=== PATIENT | male | born 1965 | race African-American/Black ===

== ENCOUNTER 2017-05-28 19:35 | Inpatient (IN) | payer BC ==
--- NOTE | ~2017-05-28 | HP ---
Unit #: [id number] #: [id number] Patient: KOURTNEY DUPREE [id number] [address] [place], [place] [address] [id number] I MR#: [id number] NAME: KOURTNEY DUPREE ROOM: 239 Age: 52 Sex: M Admission Date: 05/28/2017 : 1965 Attending Physician: Mona Howe M.D. Primary Care Physician: No Primary Care Physician HISTORY AND PHYSICAL CHIEF COMPLAINT Recurrent relapsing pancreatitis. HISTORY OF PRESENT ILLNESS This 52-year-old male with history of recurrent pancreatitis, alcohol abuse and hypertension, is to be admitted for pancreatitis. The patient was last admitted to this facility 05/10 through 05/13/2017 for acute alcohol induced pancreatitis. His medical record number at that time was [id number]. He was seen in consultation by Dr. Miguel Hilario. A gallbladder ultrasound showed fatty infiltration of the liver, borderline dilation of the common bile duct at [address] scan during that hospitalization subtle peripancreatic fat stranding suggestive of mild acute pancreatitis. A 3.1 cm low attenuation left adrenal mass unchanged from October 2016 but larger when compared to a more distant 2010 study. Mild fatty liver. The patient completed his inpatient alcohol detox at the time of his discharge a couple of weeks ago. He was doing quite well until three days ago and he states that he had one or two beers. He went back to his inpatient rehab center as he was continued that he would continue to drink alcohol. He was well until last night when he began to experience increasing epigastric pain which worsened today and is now radiating into his back associated with nausea and vomiting similar to his usual pancreatitis. He presents back to this emergency department where his amylase was 546 and lipase is 468. He was given a dose of Toradol, Zofran without relief along with a liter of saline. I have asked that a small dose of morphine also be administered. PAST MEDICAL HISTORY 1. History of alcohol abuse. 2. Recurrent alcohol induced pancreatitis. Patient estimates perhaps some four or five episodes over the past two years. 3. Essential hypertension. 4. GERD. 5. Eye surgery. SOCIAL HISTORY The patient was drinking one to two pints of hard liquor on a daily basis along with beer. He stopped drinking 04/13/2017, although he had a couple of beers three days ago. He smokes a pack per day of tobacco. He does not use illicit drugs. FAMILY HISTORY Hypertension, diabetes. Unit #: [id number] #: [id number] Patient: KOURTNEY DUPREE ALLERGIES No known drug allergies. MEDICATIONS 1. Neurontin 300 mg b.i.d. 2. Bentyl 10 mg t.i.d. p.r.n. 3. Maalox p.r.n. 4. Folic acid 1 mg daily. 5. Vitamin B daily. 6. Thiamine 200 mg daily. 7. Nexium 20 mg daily. 8. Norvasc 10 mg daily. 9. PRN Phenergan. 10. PRN Tylenol. 11. PRN Ativan. 12. Atarax 25 mg q.6 hours for anxiety. 13. Zofran 4 mg q.4 hours p.r.n. 14. Trazodone 50 mg q.h.s. REVIEW OF SYSTEMS Notable for nausea, vomiting, abdominal/back pain, pancreatitis, history of alcohol abuse and history of recurrent pancreatitis, hypertension, acid reflux, eye surgery. All other systems were reviewed and otherwise negative. PHYSICAL EXAMINATION GENERAL APPEARANCE: Uncomfortable, mildly obese, 52-year-old male. VITAL SIGNS: Temperature 98.3. Pulse 109. Respirations 18. Blood pressure 176/109. O2 saturation 100% on room air. HEENT: Eyes: PERRLA. Extraocular muscles are intact. Pharynx is benign. NECK: Supple without adenopathy or thyromegaly. CHEST: Clear. CARDIAC: Normal S1, S2 without S3, S4 or murmur. ABDOMEN: Bowel sounds are present. The patient has generalized abdominal tenderness which localizes to the mid abdomen without rebound or guarding. No hepatosplenomegaly or masses. EXTREMITIES: Without edema. NEUROLOGIC: The patient is awake, alert, oriented. Cranial nerves are intact. Equal strength throughout. DIAGNOSTIC STUDIES LABORATORY: Hematocrit 44.5, WBC count 15.8, normal platelet count. SMA-12: Sodium 132, potassium 3.4, chloride 94, protein 8.6, alkaline phosphatase 108. Amylase 546, lipase 468. ASSESSMENT 1. Recurrent relapsing pancreatitis related to alcohol abuse. However, the patient was clean and sober except for one to two beers three days ago. 2. Essential hypertension. PLAN 1. IV fluids. 2. Pain control. 3. DVT prophylaxis. 4. Check fasting triglyceride level again. 5. GI to see in consultation again. Unit #: [id number] #: [id number] Patient: KOURTNEY DUPREE Dictated by Mona Howe M.D. AML/bd TD: 05/29/2017 06:00 JOB #: [id number] HISTORY AND PHYSICAL Page 1 of 1 X Mona Howe MD X HISTORY AND PHYSICAL
--- NOTE | ~2017-05-28 | DS ---
Unit #: [id number] #: [id number] Patient: KOURTNEY DUPREE [id number] [address] [address] [id number] I MR#: [id number] NAME: KOURTNEY DUPREE ROOM: 239 Age: 52 Sex: M Admission Date: 05/28/2017 : 1965 Discharge Date: 05/31/2017 Attending Physician: Kishore Dietz M.D. Primary Care Physician: No Primary Care Physician DISCHARGE SUMMARY ADDENDUM Review of [facility] did show that the patient gets a chronic prescription for Lortab 10 from [facility]. [place] was voided, and he can continue to follow with Pain Management and continue on his regular home dose of Lortab. Dictated by... Kishore Dietz M.D. HERRERA/pita TD: 06/05/2017 09:06 JOB #: [id number] DISCHARGE SUMMARY Page 1 of 1 X Kishore Dietz MD X DISCHARGE SUMMARY
--- NOTE | ~2017-05-28 | CO ---
Unit #: [id number] #: [id number] Patient: KOURTENY DUPREE [id number] [facility] [address] [place], [place] [address] [id number] I MR#: [id number] NAME: KOURTNEY DUPREE ROOM: 239 Age: 52 Sex: M Admission Date: 05/28/2017 : 1965 Attending Physician: Kishore Dietz M.D. Primary Care Physician: No Primary Care Physician Consultation Date: 05/30/2017 CONSULTATION REPORT REASON FOR CONSULTATION Recurrent relapsing alcoholic pancreatitis. HISTORY Mr. Dupree is a 52-year-old -Polish gentleman who works at [employer]. The patient presented with a history of recurrent pancreatitis on a background of alcohol abuse and hypertension. In fact, he has been admitted three times at [facility] and apparently had a CAT scan there. He says he continued imbibing alcohol after periods of sobriety. His symptoms started with abdominal epigastric pain radiating to the back along with nausea and vomiting. The latter has stopped and patient is able to tolerate (1) . In fact, he just finished a plate of mac and cheese with cake still on the menu. He is feeling much better since after admission but still has some residual pain. PAST MEDICAL HISTORY Significant for: 1. Recurrent alcohol-induced chronic pancreatitis. 2. History of essential hypertension. 3. Gastroesophageal reflux. 4. Alcohol abuse. PAST SURGERIES The patient has no prior abdominal surgery. FAMILY HISTORY Hypertension and type 2 diabetes. MEDICATIONS His home medications include the followin. Neurontin. 2. Bentyl. 3. Maalox. 4. Folic acid. 5. Vitamin B. 6. Thiamine. 7. Nexium. 8. Norvasc. 9. He is on Atarax, Zofran and trazodone. 10. He also uses p.r.n. Ativan, Tylenol and Phenergan. ALLERGIES He has no known drug allergies. Unit #: [id number] #: [id number] Patient: KOURTNEY DUPREE SOCIAL HISTORY The patient drinks about a half to 3/4 pint of hard liquor daily. Stopped smoking recently. Does not use any intravenous drugs. REVIEW OF SYSTEMS A detailed review of organ systems does not reveal any recent weight loss. No history of fevers, chills or rigors. No history of headaches, seizures, chest pain or syncope. No history of cough, expectoration, hemoptysis. No history of dysuria, hematuria or pyuria. No history of focal seizures or extremity weakness. PHYSICAL EXAMINATION GENERAL APPEARANCE: He is alert and oriented and is sitting up in a chair. He is comfortable. VITAL SIGNS: Vital signs are stable with a temperature of 97.8, pulse is 69 per minute and regular, respiratory rate is 16, blood pressure is 136/81. He weighs 170 pounds or 169 pounds. I don't have any baseline weight to compare with. He has no pallor, icterus, lymphadenopathy or peripheral edema. CARDIOVASCULAR EXAMINATION: Normal heart sounds. No murmurs. LUNGS: Auscultation over the lungs reveals normal breath sounds. Good air entry. ABDOMEN: Soft. It is obese and minimally tender in the epigastric area. Liver and spleen are not palpable. Bowel sounds normal. DIAGNOSTIC STUDIES LABORATORY: Lab evaluation shows an elevated amylase and lipase with a declining trend and a triglyceride of 229. Peak amylase and lipase of 546 and 468 and they are now 432 and 110 respectively. The patient's BUN, creatinine and electrolytes are all normal. CBC is also normal except for mild leukocytosis which is resolving. CLINICAL IMPRESSION Patient certainly has chronic recurrent lasting alcoholic pancreatitis. The single most important element in his management and treatment is achievement of complete and total sobriety. This was impressed with Mr. Dupree and he concurred that he will try his best to stay sober. Can also discontinue morphine and start on oral hydrocodone and acetaminophen. Also, obtain copy of the CT scan done at [facility] recently. Thank you very much for asking me to see this pleasant gentleman. I appreciate the consult. Addendum - the patient's CT scan from [place] was reviewed and actually showed resolving changes of pancreatitis. Dictated by.Deion Rivera/margy TD: 06/01/2017 05:42 JOB #: [id number] Unit #: [id number] #: [id number] Patient: KOURTNEY DUPREE CC: Mona Howe M.D. CONSULTATION REPORT Page 1 of 1 X Miguel Hilario MD CONSULTATION REPORT
--- NOTE | ~2017-05-28 | DS ---
Unit #: [id number] #: [id number] Patient: KOURTNEY DUPREE [id number] [address] [address] [id number] I MR#: [id number] NAME: KOURTNEY DUPREE ROOM: 239 Age: 52 Sex: M Admission Date: 05/28/2017 : 1965 Discharge Date: Attending Physician: Kishore Dietz M.D. Primary Care Physician: No Primary Care Physician DISCHARGE SUMMARY PRIMARY DIAGNOSIS Acute alcoholic hepatitis. SECONDARY DIAGNOSES 1. Hypertension. 2. Leukocytosis, reactive, stress reaction secondary to pancreatitis. HOSPITAL COURSE The patient was placed in the hospital, received IV pain and nausea medications, was made NPO for over 24 hours and then re-introduced into a clear liquid diet and advanced. He did well and after evaluation which included urinalysis and blood cultures, no evidence of acute infection was found and patient's white blood cell count was trended down. The patient is discharged home with 10 tablets of hydrocodone and instructions to return to work on Sunday. He was seen in consultation her with Dr. Hilario. Dr. Hilario will see him back in clinic to follow up for long-term sequela of his recurrent episodes of acute pancreatitis and monitor for any issues with chronic pancreatic insufficiency that may develop. DISCHARGE DISPOSITION To home. DISCHARGE STATUS Stable. DISCHARGE ACTIVITY Ad mark. DISCHARGE DIET Full liquids and advance as tolerated. DISCHARGE MEDICATIONS 1. Lortab 7.5 one tablet p.o. q.6 hours p.r.n. pain for the next two days. 2. Amlodipine 10 mg p.o. daily. 3. Lisinopril 10 mg p.o. daily. 4. Neurontin 300 mg p.o. b.i.d. 5. Trazodone 50 mg p.o. nightly p.r.n. insomnia. 6. Loperamide 2 mg p.o. q.8 hours p.r.n. diarrhea. 7. Zofran 4 mg p.o. q.4 hours p.r.n. nausea. 8. Phenergan 25 mg p.o. q.4 hours p.r.n. nausea. 9. Bentyl 10 mg p.o. q.8 hours p.r.n. 10. Vistaril 25 mg p.o. q.6 hours p.r.n. 11. Ibuprofen 400 mg p.o. q.6 hours p.r.n. pain. Unit #: [id number] #: [id number] Patient: KOURTNEY DUPREE 12. Nexium 20 mg p.o. daily. 13. Folic acid 1 mg p.o. daily. 14. Thiamine 200 mg p.o. daily. 15. Vitamin B complex one tablet p.o. daily. The only new prescriptions given at discharge were for the 10 tablets of Lortab and for 30-day supply of lisinopril with one refill. The rest of these are home medications. Dictated by... Kishore Dietz M.D. HERRERA/pita TD: 05/31/2017 12:25 JOB #: [id number] DISCHARGE SUMMARY Page 1 of 1 X Kishore Dietz MD X DISCHARGE SUMMARY
[2017-05-28 21:07] LABS: BASOPHIL# 0.1 X10e3 (0-0.3); BASOPHIL% 0.6 % (0-2.5); HEMATOCRIT 44.5 % (38.0-50.0); HEMOGLOBIN 15.1 gm/dL (13.0-16.0); LYMPHOCYTE# 1.3 X10e3 (1.0-3.5); LYMPHOCYTE% 8.3 % (17.0-45.0); MEAN CELL VOLUME 94.4 FL (83-96); MEAN CORPUSCULAR HEMOGLOBIN 32.1 PG (28-34); MEAN PLATELET VOLUME 7.2 FL (6.5-11.5); MONOCYTE# 0.4 X10e3 (0-1.0); MONOCYTE% 2.6 % (3.0-12.0); NEUTROPHIL% 88.5 % (40-75); PLATELET COUNT 381 X10e3 (140-420); RED BLOOD COUNT 4.71 X10e (3.90-5.60); WHITE BLOOD COUNT 15.8 X10e3 (4.0-10.5)
[2017-05-28 21:10] LABS: DIFF IND YES
[2017-05-28 21:26] LABS: ANISOCYTOSIS MOD; PLATELET ESTIMATE NORMAL (NORMAL); STOMATOCYTE PRESENT
[2017-05-28 21:41] LABS: ALBUMIN SERUM 4.9 g/dL (3.5-5.0); BILIRUBIN, DIRECT 0.1 mg/dL (0.0-0.2); BILIRUBIN,INDIRECT 0.6 mg/dL (0.0-0.9); BILIRUBIN,TOTAL 0.7 mg/dL (0.2-2.0); BUN/CREATININE RATIO 11.42; CALCIUM SERUM 10.1 mg/dL (8.4-10.2); CREATININE SERUM 0.7 mg/dL (0.6-1.4); GLOM FILT RATE Estimated 126.7 mL/min (>60); POTASSIUM 3.4 mmol/L (3.5-5.1); PROTEIN TOTAL SERUM 8.6 g/dL (6.0-8.3)
[2017-05-28] MEDS ORDERED: BENTYL10 M1 PO (22:28)
[2017-05-28] MEDS ORDERED: NEURONTIN300 MG PO (22:28)
[2017-05-28] MEDS ORDERED: MAALOX SUSPENS355 ML PO (22:29)
[2017-05-28] MEDS ORDERED: FOLIC ACID1 MG PO (22:31)
[2017-05-28] MEDS ORDERED: B COMPLEX1 EACH PO (22:31)
[2017-05-28] MEDS ORDERED: THIAMINE HCL100 M2 PO (22:32)
[2017-05-28] MEDS ORDERED: AMLODIPINE BESY10 MG PO (22:32)
[2017-05-28] MEDS ORDERED: NEXIUM20 MG PO (22:32)
[2017-05-28] MEDS ORDERED: PHENERGAN25 M1 PO (22:33)
[2017-05-28] MEDS ORDERED: ACETAMINOPHEN PO (22:34)
[2017-05-28] MEDS ORDERED: LORAZEPAM1 MG PO (22:34)
[2017-05-28] MEDS ORDERED: VISTARIL PO (22:36)
[2017-05-28] MEDS ORDERED: MUCUS ER600 MG PO (22:36)
[2017-05-28] MEDS ORDERED: MOTRIN600 M2 PO (22:37)
[2017-05-28] MEDS ORDERED: LOPERAMIDE HCL2 M1 PO (22:37)
[2017-05-28] MEDS ORDERED: ZOFRAN PO (22:38)
[2017-05-28] MEDS ORDERED: DESYREL50 MG PO (22:38)
[2017-05-29 08:52] LABS: BASOPHIL# 0.1 X10e3 (0-0.3); BASOPHIL% 0.9 % (0-2.5); DIFF IND NO; EOSINOPHIL# 0.1 X10e3 (0-0.7); EOSINOPHIL% 0.6 % (0.0-7.0); HEMOGLOBIN 13.9 gm/dL (13.0-16.0); LYMPHOCYTE# 2.6 X10e3 (1.0-3.5); LYMPHOCYTE% 18.2 % (17.0-45.0); MEAN CELL VOLUME 94.9 FL (83-96); MEAN CORPUSCULAR HEMOGLOBIN 32.1 PG (28-34); MEAN CORPUSCULAR HGB CONC 33.8 g/dL (30-36); MEAN PLATELET VOLUME 6.8 FL (6.5-11.5); MONOCYTE# 0.7 X10e3 (0-1.0); MONOCYTE% 4.7 % (3.0-12.0); NEUTROPHIL# 10.6 X10e3 (1.5-7.1); NEUTROPHIL% 75.6 % (40-75); PLATELET COUNT 323 X10e3 (140-420); RED BLOOD COUNT 4.32 X10e (3.90-5.60)
[2017-05-29 09:16] LABS: ALBUMIN SERUM 4.2 g/dL (3.5-5.0); BILIRUBIN,TOTAL 0.6 mg/dL (0.2-2.0); CALCIUM SERUM 9.1 mg/dL (8.4-10.2); CREATININE SERUM 0.6 mg/dL (0.6-1.4); POTASSIUM 3.5 mmol/L (3.5-5.1); PROTEIN TOTAL SERUM 7.2 g/dL (6.0-8.3)
[2017-05-29 13:51] LABS: URINE APPEARANCE CLEAR; URINE BILIRUBIN NEG (NEG); URINE BLOOD TRACE (NEG); URINE COLOR YELLOW; URINE GLUCOSE NEG (NEG); URINE KETONE NEG (NEG); URINE LEUKOCYTE ESTERASE NEG (NEG); URINE NITRATE NEG (NEG); URINE PH 6.5 (5-8); URINE PROTEIN NEG (NEG); URINE SPECIFIC GRAVITY 1.005 (1.003-1.035); URINE UROBILINOGEN 0.2 MG/DL (NEG)
[2017-05-29 13:56] LABS: URINE BACTERIA AUWI NEG (NEGATIVE); URINE SQUAMOUS EPITHELIAL CELL NONE SEEN /[HPF]; UWBCS1 AUWI 0-2 (0-5)
[2017-05-30 05:54] LABS: HEMATOCRIT 38.6 % (38.0-50.0); HEMOGLOBIN 12.9 gm/dL (13.0-16.0); MEAN CELL VOLUME 96.1 FL (83-96); MEAN CORPUSCULAR HEMOGLOBIN 32.1 PG (28-34); MEAN CORPUSCULAR HGB CONC 33.4 g/dL (30-36); MEAN PLATELET VOLUME 7.5 FL (6.5-11.5); RED BLOOD COUNT 4.01 X10e (3.90-5.60); RED CELL DISTRIBUTION WIDTH 15.3 % (11.0-15.5); WHITE BLOOD COUNT 11.6 X10e3 (4.0-10.5)
[2017-05-30 06:18] LABS: BILIRUBIN,TOTAL 0.5 mg/dL (0.2-2.0); BUN/CREATININE RATIO 8.33; CALCIUM SERUM 9.1 mg/dL (8.4-10.2); CREATININE SERUM 0.6 mg/dL (0.6-1.4); POTASSIUM 3.8 mmol/L (3.5-5.1); PROTEIN TOTAL SERUM 6.9 g/dL (6.0-8.3)
[2017-05-31 05:53] LABS: HEMATOCRIT 41.2 % (38.0-50.0); MEAN CELL VOLUME 95.5 FL (83-96); MEAN CORPUSCULAR HEMOGLOBIN 32.5 PG (28-34); MEAN PLATELET VOLUME 7.4 FL (6.5-11.5); RED BLOOD COUNT 4.31 X10e (3.90-5.60); RED CELL DISTRIBUTION WIDTH 15.1 % (11.0-15.5); WHITE BLOOD COUNT 11.8 X10e3 (4.0-10.5)
[2017-05-31 06:49] LABS: ALBUMIN SERUM 4.6 g/dL (3.5-5.0); CALCIUM SERUM 9.8 mg/dL (8.4-10.2); CREATININE SERUM 0.7 mg/dL (0.6-1.4); GLOM FILT RATE Estimated 126.7 mL/min (>60); POTASSIUM 3.5 mmol/L (3.5-5.1)
[2017-05-31] MEDS ORDERED: LORTAB 7.5-3251 EACH PO (12:26)
[2017-05-31] MEDS ORDERED: PRINIVIL10 MG PO (12:26)
== END 2017-05-31 17:15 | disposition home or self-care (01) | DRG 433 ==
LOC: CED 19:35 → C2A 23:00 → CEDOF 23:00 → CED 23:09 → CEDOF 05-29 00:20 → C2A 05-29 00:20
PROVIDERS: Emergency Medicine; Internal Medicine; Internal Medicine Gastroenterology
DX: K70.10 Alcoholic hepatitis without ascites (principal); K86.0 Alcohol-induced chronic pancreatitis; I10 Essential (primary) hypertension; F17.210 Nicotine dependence, cigarettes, uncomplicated; K21.9 Gastro-esophageal reflux disease without esophagitis; F10.10 Alcohol abuse, uncomplicated; Z83.3 Family history of diabetes mellitus; Z82.49 Family history of ischemic heart disease and other diseases of the circulatory system
CPT/HCPCS: 36415; 80048; 80053; 80076; 81003; 82150; 83690; 84478; 85025; 85027; 87040; 87086; 96361; 96374; 96375; 99285; J1650; J1885; J2270; J2405